=== PATIENT | male | born 1965 | race Caucasian/White ===

== ENCOUNTER 2022-04-13 09:36 | Inpatient (IN) | payer SELFPAY ==
[2022-04-13] VITALS (26 sets, daily range): BP systolic 91–146; BP diastolic 65–90; PULSE 41–60; RESP 10–23; O2SAT 92–98; BMI 26.4
--- NOTE | 2022-04-13 09:44 | ECG_ITS ---
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 Measurements Intervals [place] Rate: 50 P: 60 DC: 141 QRS: 40 QRSD: 131 T: 52 QT: 510 QTc: 467 Interpretive Statements SINUS BRADYCARDIA WITH SINUS ARRHYTHMIA INTRAVENTRICULAR CONDUCTION DELAY [130+ ms QRS DURATION] INFERIOR MYOCARDIAL INFARCTION , OF INDETERMINATE AGE [40+ ms Q WAVE AND/OR ST/T ABNORMALITY IN II/aVF] No previous ECG available for comparison Electronically Signed On 04-14-2022 13:54:07 SUBSTATION ENGINEER by Gregorio Frazier M.D. [id number]
--- NOTE | 2022-04-13 09:44 | XRR_ITS ---
PROCEDURE INFORMATION: Exam: XR Chest Exam date and time: 04/13/2022 10:51 AM Age: 56 years old Clinical indication: Pain; Chest pressure; Additional info: Chest pain TECHNIQUE: Imaging protocol: Radiologic exam of the chest. Views: 1 view. COMPARISON: No relevant prior studies available. FINDINGS: Lungs: There is mild peribronchial wall thickening. No pulmonary consolidation. Pleural spaces: No pleural effusion. No pneumothorax. Heart/Mediastinum: The cardiac silhouette is unremarkable. No gross evidence of pneumomediastinum. Bones/joints: No gross fracture. XR/XR chest 1V portable [id number] IMPRESSION: There is mild peribronchial wall thickening; query viral infection/bronchitis, chronic bronchitis and/or asthma.
--- NOTE | 2022-04-13 09:46 | ED_ITS ---
HPI - Chest Pain General: Chief Complaint: ER Hold Stated Complaint: CHEST PAIN Time Seen by Provider: 04/13/22 09:37 Source: patient Mode of arrival: ambulatory History of Present Illness: 56-year-old male presents emergency room with complaint of chest pain. He has a known history of coronary artery disease he had a couple episodes this week of chest pain while at rest that resolved spontaneously. This 1 seemed to be progressively worsening last night episodes while he was doing some woodcarving and resolved spontaneously and then resumed this morning while at rest. He was given Nitropaste in route he states he did not notice any improvement with it. He has previously had several stents unfortunately has not been taking any medications last couple years and including his Plavix. He thinks its been approximately 4 years since he has had any kind of cardiac evaluation he thought the last time he was evaluated they told him everything was normal he cannot member if they did any particular testing such as an echo stress test or angiogram. Initial arrival there is no ST elevation on his EKG. MD complaint: chest pain Onset (ago): hour(s) Timing of current episode: episodic Prior episodes: Yes Onset: during rest Pain location: left chest Severity: moderate Quality: aching and heaviness Relieving factors: nothing Exacerbating factors: nothing Associated symptoms: Deny abdominal pain, diaphoresis, dyspnea, fever(s), leg edema, nausea, palpitations, sense of impending doom, syncope or vomiting Review of Systems Const: Denies: fever(s), chills, fatigue or diaphoresis ENMT: Denies: throat pain, ear or mastoid pain, nasal discharge or nasal congestion Card: Reports: chest pain; Denies: palpitations, irregular heart rhythm, edema, swelling of feet/ankles or syncope Resp: Denies: dyspnea GI: Denies: abdominal pain, nausea or vomiting : Denies: flank pain, dysuria, urinary frequency or urinary urgency Skin/Breast: Denies: rash or pruritus PFSH ED PFSH: Medical History Coronary stent patent Myocardial infarct, old Social History Smoking and tobacco status: current every day smoker Quit status (tobacco): considering quitting Second hand smoke exposure: No Smoking risk assessment/counseling performed?: No Alcohol intake: never Desire information about alcohol rehabilitation?: No Counseling given: No Physical Exam Const: COMMON NORMALS: no acute distress GENERAL APPEARANCE: cooperative and comfortable ORIENTATION/CONSCIOUSNESS: Yes awake, Yes oriented to person, Yes oriented to place and Yes oriented to time HENMT: COMMON NORMALS: normocephalic, atraumatic and hearing grossly normal bilaterally HEAD & SCALP: normocephalic and atraumatic Resp: COMMON NORMALS: normal respiratory effort, No retractions, No use of accessory muscles and clear to auscultation bilaterally AUSCULTATION: clear to auscultation bilaterally Cardio: COMMON NORMALS: regular rate, regular rhythm and No murmurs present (Cardio) RATE: regular rate RHYTHM: regular rhythm GI: COMMON NORMALS: Soft to palpation and No hepatosplenomegaly present AUSCULTATION: Yes normoactive bowel sounds PALPATION: Yes Soft to palpation, No Tenderness to palpation present (GI), No Guarding due to palpation present (GI) and Yes No hepatosplenomegaly present Extremity: COMMON NORMALS: normal to inspection, capillary refill normal, no clubbing, cyanosis or edema, no calf tenderness and no pedal edema Neuro: SENSORIUM/ORIENTATION: Yes oriented to person, Yes oriented to place and Yes oriented to time Skin: COMMON NORMALS: no rashes or lesions noted GENERAL SKIN EXAM: no rashes or lesions noted Course Vital Signs: Vital signs: Vital Signs Pulse Rate 55 L 04/14/22 03:44 Respiratory Rate 18 04/14/22 03:44 Blood Pressure 125/65 04/14/22 03:44 Pulse Oximetry 96 04/14/22 03:44 Oxygen Delivery Me thod 04/14/22 03:44 MDM - Chest Pain Medical Decision Making Patient describes episode of escalating unstable angina over the past week worsening today. First troponin is elevated were waiting on a second to go ahead and load him with Plavix he is on Nitropaste discussed with hospitalist given his history and his current presentation will need to admit. He has not nonspecific ST changes nothing that would meet criteria for ST elevation ND at this point. Discussed with the patient he expressed understanding discussed with hospitalist orders are written. Medical Records I reviewed the patient's medical records. Lab Data I reviewed the patient's lab results. 04/14/22 01:45 04/14/22 01:45 Radiology Impressions Chest X-Ray 04/13/22 09:44 IMPRESSION: There is mild peribronchial wall thickening; query viral infection/bronchitis, chronic bronchitis and/or asthma. Discharge Plan Discharge Patient Disposition: Admitted As Inpatient Admit Provider: Mariel Saenz Clinical Impression: Unstable angina pectoris, Atherosclerotic heart disease of [place] coronary artery with unstable angina pectoris, Dyslipidemia, Ischemic cardiomyopathy, Smoking addiction, Benign essential hypertension with target blood pressure below 140/90 Condition: Stable Coding Level of Care Code ED Bullet Swaging Machine Operator for Chg Fwd Exam Detailed
[2022-04-13] MEDS: clopidogrel 300 mg Tablet 600 MG PO (09:48)
[2022-04-13 10:20] LABS: Basophils % 0.5 %; Eosinophils # 0.1 10^3/uL (0.0-0.8); Eosinophils % 1.4 %; Hematocrit 47.7 % (42.0-52.0); Hemoglobin 15.5 g/dL (11.7-16.6); Lymphocytes # 2.7 10^3/uL (0.8-4.8); Lymphocytes % 30.6 %; Mean Corpuscular HGB Conc 32.5 g/dL (30.0-36.0); Mean Corpuscular Hemoglobin 28.2 pg (28.0-34.0); Mean Corpuscular Volume 86.9 fl (80-94); Mean Platelet Volume 11.3 fL (7.4-10.4); Monocytes # 0.8 10^3/uL (0.2-0.9); Monocytes % 8.7 %; Neutrophils # 5.15 10^3/uL (1.8-7.7); Neutrophils % 58.5 %; Nucleated Red Blood Cells % 0 %; Platelet Count 253 10^3/cmm (130-400); Red Blood Count 5.49 10^6/uL (4.1-5.3); Red Cell Distribution Width 14.4 % (12.1-15.1); White Blood Count 8.8 10^3/uL (4.0-10.0)
[2022-04-13 10:29] LABS: Alanine Aminotransferase 28 U/L (0-41); Albumin Level 4.2 g/dL (3.5-5.2); Alkaline Phosphatase 139 U/L (40-130); Aspartate Amino Transferase 33 U/L (0-40); Blood Urea Nitrogen 14 mg/dL (6-20); Carbon Dioxide 27 mmol/L (22-29); Chloride 100 mmol/L (98-107); Creatinine Clr Calc Pharmacy 119.9068; Globulin 3.2 g/dL (1.3-4.6); Glomerular Filtration Rate 99.3 mL/min (90-130); Glucose 112 mg/dL (65-115); Osmolality Calculated 281 mOsm/kg (285-295); Sodium 135 mmol/L (136-145); Total Bilirubin 0.4 mg/dL (0.15-1.2); Total Protein 7.4 g/dL (6.6-8.7)
[2022-04-13 10:30] LABS: Troponin(5th) Baseline 79 ng/L (0-15)
[2022-04-13 10:42] LABS: Anion Gap 12.4 (5-19); Potassium 4.4 mmol/L (3.5-5.1)
--- NOTE | 2022-04-13 11:20 | ECG_ITS ---
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 Measurements Intervals [place] Rate: 42 P: 56 MT: 170 QRS: 50 QRSD: 136 T: 58 QT: 541 QTc: 456 Interpretive Statements SINUS BRADYCARDIA WITH SINUS ARRHYTHMIA INTRAVENTRICULAR CONDUCTION DELAY [130+ ms QRS DURATION] INFERIOR MYOCARDIAL INFARCTION , OF INDETERMINATE AGE [40+ ms Q WAVE AND/OR ST/T ABNORMALITY IN II/aVF] Compared to ECG 04/13/2022 09:42:15 No significant changes Electronically Signed On 04-15-2022 0:04:49 CHAR FILTER TANK TENDER by Gregorio Frazier M.D. [id number]
[2022-04-13 13:24] LABS: Troponin 5 2HR 158.8 ng/L (0-15); Troponin 5 2HR Delta 79.8 ABS# (0-10)
--- NOTE | 2022-04-13 13:30 | USCV_ITS ---
Marv Gonzalez Age: 56 Gender: M : 1965 Exam Date: 04/13/2022 13:53 Ordering Phys: Mariel Saenz MD Technologist: Jhony Navarro Exam Location: [facility] Indication: nstemi BP: 134 / 68 HR: 45 Rhythm: Sinus Technical Quality: Adequate MEASUREMENTS (Male / Female) Normal Values 2D ECHO LV Diastolic Diameter PLAX 5.7 cm 4.2 - 5.9 / 3.9 - 5.3 cm LV Systolic Diameter PLAX 4.3 cm IVS Diastolic Thickness 0.9 cm 0.6 - 1.0 / 0.6 - 0.9 cm IVS Systolic Thickness 1.3 cm LVPW Diastolic Thickness 1.3 cm 0.6 - 1.0 / 0.6 - 0.9 cm LVPW Systolic Thickness 1.3 cm LVOT Diameter 2.1 cm LV Ejection Fraction 2D Teich 30.5 % LV Ejection Fraction MOD 2C 58.1 % LV Ejection Fraction 2C AL 57.7 % LA Diameter 4.6 cm Aorta at Sinotubular Diameter 3.0 cm IVC Diameter 2.6 cm M-MODE Aortic Annulus Diameter 4.1 cm LA Ao Ratio MM 1.1 MV E Point Septal Separation 1.5 cm DOPPLER AV Peak Velocity 157.0 cm/s LVOT Peak Velocity 108.0 cm/s AV Area Cont Eq vti 2.7 cm squared AV Area Cont Eq pk 2.3 cm squared MV Area PHT 5.0 cm squared Mitral E to A Ratio 1.0 MV E' Velocity 33.0 cm/s Mitral E to MV E' Ratio 7.6 Mitral E to LV E' Lateral Ratio 6.1 Mitral E to LV E' Septal Ratio 10.4 TR Peak Velocity 130.0 cm/s TR Peak Gradient 6.8 mmHg TV Peak E Velocity 78.0 cm/s Right Atrial Pressure 3.0 mmHg Pulmonary Artery Systolic Pressu 9.8 mmHg RV Acceleration Time 0.1 s FINDINGS Left Ventricle Moderate diffuse hypokinesia left ventricle. Mildly dilated LV cavity.Grade I/IV diastolic dysfunction (abnormal relaxation filling pattern), normal to mildly elevated filling pressures. LV ejection fraction around 35 to 40%(visual) Right Ventricle The right ventricle is normal in size and function. Right Atrium The right atrium is normal in size. Left Atrium The left atrium is normal in size. Mitral Valve Thickened mitral valve. Aortic Valve Thickened aortic valve. Tricuspid Valve No gross abnormalities noted.trace tricuspid valve regurgitation. Pulmonic Valve Could not be visualized well Pericardium Normal pericardium without effusion. Aorta Normal ascending aorta dimension. IVC The inferior vena cava appears normal. CONCLUSIONS Moderate diffuse hypokinesia left ventricle. Mildly dilated LV cavity. Grade I/IV diastolic dysfunction (abnormal relaxation filling pattern), normal to mildly elevated filling pressures. LV ejection fraction around 35 to 40%(visual). Thickened aortic and mitral valves. Trace tricuspid valve regurgitation. Estimated pulmonary artery peak systolic pressure within normal There is no pericardial effusion. No similar previous studies are available for comparison Dr Gregorio Frazier MD [facility] (Electronically Signed) Final Date: 13 April 2022 15:09 S
--- NOTE | 2022-04-13 13:30 | PC.NURSE ---
report given to Cezar Sierra5
--- NOTE | 2022-04-13 13:33 | PM.HP ---
Providers/Chief Complaint Admitting Physician: Mariel Saenz MD Primary Care Provider: BRYANT Linares Chief Complaint: CHEST PAIN History of Present Illness Marv Gonzalez is a 56 year old male with a past medical history of CAD, history of stenting 16 years ago, and then again 4 to 5 years afterwards for what appears to be in-stent stenosis per his history. He had previous cardiac care in [place]. Patient presents to the emergency room today complaining of chest pain for the last 4 days. States that he was at home, working in his barn when the pain started. He initially thought this was heartburn, symptoms apparently relieved by belching. However symptoms returned over the next 3 days. Since last night his pain has become more persistent and therefore presented to the emergency room. He describes the sensation as a tightness squeezing sensation in the middle of his chest radiating into the back. Associated diaphoresis present. No dyspnea. Upon presentation to the ER he was noted to have sinus bradycardia with heart rate ranging between 45 to 60 bpm. No lower extremity edema. Denies any orthopnea or PND. EKG did not show any acute ST-T wave changes. Baseline troponin returned elevated at 79, trending up at 2 hours with a delta of 79. Symptoms are not significantly relieved after morphine or nitro patch. Review of Systems General: Reports: 10 or more systems reviewed and unremarkable except in HPI and below Const: Denies: fever(s), chills or body aches Eyes: Denies: change in vision, blurry vision or photophobia ENMT: Reports: hoarseness; Denies: throat pain, enlarged tonsils, odynophagia or nasal congestion Card: Denies: chest pain, palpitations, irregular heart rhythm, edema, swelling of feet/ankles, lightheadedness, pre-syncope, dyspnea on exertion or orthopnea Resp: Denies: dyspnea, productive cough, non-productive cough, wheezing, stridor, pain on inspiration, change in phlegm color, hemoptysis or chest congestion GI: Denies: abdominal pain, nausea, vomiting, hematemesis, coffee ground emesis, dysphagia, heartburn, diarrhea, constipation, GI cramping, change in stool character, hematochezia or melena : Denies: flank pain, dysuria, urinary frequency, urinary urgency, urinary hesitancy or hematuria Musc: Denies: neck pain, back pain, extremity pain, joint swelling, joint warmth or deformity Neuro: Denies: headache(s), numbness in extremities, weakness in extremities, sensory changes, difficulty walking, frequent falls, dizziness, vertigo, behavioral changes, Slurred speech present or seizure-like activity Psych: Denies: anxiety, depression, suicidal ideation or homicidal ideation Endo: Denies: polyuria, polydipsia, tired all the time, cold intolerance or hot flashes Getachew/Lymph: Denies: easy bruising or easy bleeding Medications/Allergies Home Medications Medication Instructions Recorded Confirmed Last Taken Type No Known Home Medications 11/30/19 04/13/22 Unknown History Allergies Allergy/AdvReac Type Severity Reaction Status Date / Time No Known Allergies Allergy Verified 11/30/19 08:44 PFSH Acute PFSH: Medical History Coronary stent patent Myocardial infarct, old Social History Smoking and tobacco status: current every day smoker Quit status (tobacco): considering quitting Second hand smoke exposure: No Smoking risk assessment/counseling performed?: No Alcohol intake: never Desire information about alcohol rehabilitation?: No Counseling given: No Vitals/I&O/Wt Last Vital Signs Pulse 41 L 04/13/22 12:00 Resp 11 L 04/13/22 12:00 BP 120/78 04/13/22 12:00 Pulse Ox 97 04/13/22 12:00 O2 Del Method 04/13/22 12:00 Weight last 48 hrs Weight 90.718 kg Physical Exam Narrative: General: No acute distress, AO x3 HEENT: PERRLA, pupils bilaterally equal and reactive, pallors not present Chest: Normal vesicular breath sounds, no added sounds, equal good air entry bilaterally CVS: S1-S2 regular, no murmurs, no tachycardia, no gallops, no rubs Abdomen: Soft, nontender, no organomegaly, bowel sounds present Neuro: No focal deficits, no facial deformity, AO x3, power 5/5 in all limbs Data 04/13/22 Unknown 04/13/22 Unknown A&P Assessment and plan (1) NSTEMI (non-ST elevated myocardial infarction): Patient presenting today with central chest pressure radiating into the back along with associated diaphoresis. Has a known past history of coronary artery disease. EKG without acute ST-T wave changes, however elevated baseline troponin trending up at 2 hours with a delta of 79. Overall clinically appears to be consistent with NSTEMI. Start Lovenox 1 mg/kg subcutaneous every 12 hours. He has received aspirin 325 mg and Plavix 600 mg already. Continue aspirin 81 mg p.o. daily, lipitor 40mg daily Check echocardiogram. Cardiology consultation to assess for coronary angiogram Currently on nitro patch, states that he has had some improvement, if persisting will start nitroglycerin infusion. Admitted to [facility]SU. Attestations Medical Necessity Statement*: Inpatient admission, anticipate greater than 2 midnight stay for NSTEMI, possible angiogram Coding Level of Care Code Acute Automatic Teller Machine Servicer for Cris Taylor Diagnoses NSTEMI (non-ST elevated myocardial infarction) I21.4
[2022-04-13] MEDS: enoxaparin 100 mg/mL Syringe 90 MG SUBCUT (14:04)
--- NOTE | 2022-04-13 15:44 | ECG_ITS ---
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 Measurements Intervals [place] Rate: 48 P: 61 ID: [id number] QRS: 52 QRSD: 127 T: 48 QT: 483 QTc: 432 Interpretive Statements SINUS BRADYCARDIA POSSIBLE RIGHT VENTRICULAR CONDUCTION DELAY [RSR (QR) IN V1/V2] INFERIOR MYOCARDIAL INFARCTION , OF INDETERMINATE AGE [40+ ms Q WAVE AND/OR ST/T ABNORMALITY IN II/aVF] Compared to ECG 04/13/2022 11:20:37 Sinus arrhythmia no longer present Intraventricular conduction delay no longer present Myocardial infarct finding still present Electronically Signed On 04-15-2022 0:08:03 AIRCRAFT RIGGING AND CONTROLS MECHANIC by Gregorio Frazier M.D. [email or web address] [id number]
[2022-04-13] MEDS: aspirin 81 mg Chew Tablet 324 MG PO (17:55)
[2022-04-13] MEDS: nitroglycerin 1 gm/inch oint Pkt 1 INCH TOPICAL (18:00)
--- NOTE | 2022-04-13 18:26 | P.CONIM_ITS ---
Providers/Reason For Consult Consulting Physician/Specialty*: JJ Frazier MD/cardiology Reason for Consult*: Patient with chest pain and elevated troponin T Requesting Physician: Dr. Saenz Attending Physician: Mariel Saenz MD Primary Care Provider: BRYANT Linares History of Present Illness History of Present Illness Marv Gonzalez is a 56 year old male with a history of coronary artery disease and myocardial infarction, presenting with complaints of prolonged episode of chest pain since 9:00 last night. He was found to have elevated troponin T with significant delta. Cardiology consult is requested for further cardiac evaluation recommendation. This patient has a history of coronary disease and had myocardial infarction at the age of 40. At that time, he had a cardiac catheterization followed by PCI at the [facility]. Details are not available. 3 or 4 years after the initial intervention, he was readmitted to the hospital and had to undergo repeat angiogram and PCI. He was told that the previous stent got occluded/collapsed?. Apparently since then, he has been doing okay with no recu rrence of chest pain. He has been taking medications up until 6 or 7 years ago. He used to see Dr. Martin at the [facility]. But he has not seen him for the last 6 or 7 years. He continues to smoke. He has a history of hypertension and dyslipidemia. No history for severe peripheral artery disease. No history for kidney disease, liver disease or bleeding disorders. He has been having episodes of chest pain for the last 10 days. He might have 3 or 4 episodes of pain. He described as a burning gas-like pain in the mid substernal region, radiating across the chest and sometimes to the back. The symptoms may last for few minutes and then goes away by itself or with belching. Last night he started having symptoms around 9 PM while he was working in his shed, doing some woodcarving. Started having similar symptoms in the substernal region, radiating to both shoulders and to the back and then down to both arms. This time the symptoms start getting worse. He came home with the symptoms. Apparently he had the symptoms throughout the night. This morning the pain was still there and was getting more severe. For that reason, he went to the ambulance at and from there he was brought to the emergency room. At the time of examination, patient is almost pain-free. He still may have some tired feeling in the chest. He has no associated symptoms or radiation of pain. No previous history for any diabetes or CVA. No history for peripheral artery disease. Both his parents had myocardial infarction in their 50s and 60s. One of his brothers also is known to have heart problems starting in his 40s. No other relevant family history. Review of Systems Narrative: CONSTITUTIONAL: No fever or chills. Has been having some amount of fatigue. EYES: No blurring of vision or other visual disturbances lately. ENT: No hoarseness of voice, auditory disturbances or sore throat. CARDIOVASCULAR: As mentioned above. RESPIRATORY: No significant cough. GASTROINTESTINAL: No hematemesis or melena. GENITOURINARY: No dysuria or hematuria. INTEGUMENTARY: No skin rashes or history of skin cancer. NEURO: No transient ischemic attacks or amaurosis. PSYCHIATRIC: No history of psychosis or major depression. HEMATOLOGIC: No bleeding disorders or significant anemia. ENDOCRINE: No history of polyuria or polydipsia. MUSCULOSKELETAL: No recent joint pain or swelling. ALLERGY/IMMUNOLOGY: As mentioned above. Medications/Allergies Home Medications Medication Instructions Recorded Confirmed Last Taken Type No Known Home Medications 11/30/19 04/13/22 Unknown History Allergies Allergy/AdvReac Type Severity Reaction Status Date / Time No Known Allergies Allergy Verified 11/30/19 08:44 Current Medications Generic Name Dose Route Start Last Admin Trade Name Freq PRN Reason Stop Dose Admin Enoxaparin Sodium 90 mg 04/13/22 14:00 04/13/22 14:04 Enoxaparin 100 Mg/Ml Syringe SUBCUT 90 mg Q12H NAYAN Administration Nitroglycerin 1 inch 04/13/22 17:00 04/13/22 18:00 Nitroglycerin 1 Gm/Inch Oint Pkt TOPICAL 1 inch Q6H NAYAN Administration PFSH Acute PFSH: Medical History Coronary stent patent Myocardial infarct, old Social History Smoking and tobacco status: current every day smoker Quit status (tobacco): considering quitting Second hand smoke exposure: No Smoking risk assessment/counseling performed?: No Alcohol intake: never Desire information about alcohol rehabilitation?: No Counseling given: No Vitals/I&O/Wt Last Vital Signs Pulse 60 04/13/22 17:45 Resp 15 04/13/22 17:45 BP 133/79 04/13/22 17:45 Pulse Ox 94 04/13/22 17:45 O2 Del Method 04/13/22 14:12 Weight last 48 hrs Weight 200 lb Physical Exam Narrative: GENERAL: The patient is alert and oriented times three. Not in any acute distress. HEENT: No significant pallor, icterus or lymphadenopathy.Oral cavity: There are no mucous membrane lesions. NECK: Trachea appears to be central. No masses noted. No JVD or thyromegaly appreciated. RESPIRATORY: Chest is symmetrical. No intercostals muscle retraction or any accessory muscle activation. There is no chest wall tenderness. Breath sounds are heard bilaterally. No rales or rhonchi heard. No evidence of any consolidation. BREASTS: Deferred. HEART: The heart sounds are normal. No S3 or S4. No significant murmurs. No pericardial rub ABDOMEN: No vessel pulsations or distention. No tenderness. No organomegaly appreciated. Bowel sounds are normally heard. : Deferred. RECTAL: Deferred. LYMPHATIC: No lymphadenopathy noted in the neck. EXTREMITIES: No edema or cyanosis. No clubbing. MUSCULOSKELETAL: No acute joint deformities or swelling SKIN: There are no significant rashes or ecchymosis NEUROPSYCHIATRIC: The patient is alert and oriented x3. Appears to be in a good mood. No tremors or rigidity noted. Data 04/13/22 Unknown 04/13/22 Unknown Micro: Laboratory Last Values WBC 8.8 10^3/uL (4.0-10.0) 04/13/22 Unknown RBC 5.49 10^6/uL (4.1-5.3) H 04/13/22 Unknown Hgb 15.5 g/dL (11.7-16.6) 04/13/22 Unknown Hct 47.7 % (42.0-52.0) 04/13/22 Unknown MCV 86.9 fl (80-94) 04/13/22 Unknown MCH 28.2 pg (28.0-34.0) 04/13/22 Unknown MCHC 32.5 g/dL (30.0-36.0) 04/13/22 Unknown RDW 14.4 % (12.1-15.1) 04/13/22 Unknown Plt Count 253 10^3/cmm (130-400) 04/13/22 Unknown MPV 11.3 fL (7.4-10.4) H 04/13/22 Unknown Neut % (Auto) 58.5 % 04/13/22 Unknown Lymph % (Auto) 30.6 % 04/13/22 Unknown [place]ward % (Auto) 8.7 % 04/13/22 Unknown Eos % (Auto) 1.4 % 04/13/22 Unknown Baso % (Auto) 0.5 % 04/13/22 Unknown Neut # (Auto) 5.15 10^3/uL (1.8-7.7) 04/13/22 Unknown Lymph # (Auto) 2.7 10^3/uL (0.8-4.8) 04/13/22 Unknown [place]ward # (Auto) 0.8 10^3/uL (0.2-0.9) 04/13/22 Unknown Eos # (Auto) 0.1 10^3/uL (0.0-0.8) 04/13/22 Unknown Baso # (Auto) 0.0 10^3/uL (0.0-0.1) 04/13/22 Unknown Nucleated RBC % (auto) 0 % 04/13/22 Unknown Nucleated RBCs # 0.0 /100WBC 04/13/22 Unknown Sodium 135 mmol/L (136-145) L 04/13/22 Unknown Potassium 4.4 mmol/L (3.5-5.1) 04/13/22 Unknown Chloride 100 mmol/L (98-107) 04/13/22 Unknown Carbon Dioxide 27 mmol/L (22-29) 04/13/22 Unknown Anion Gap 12.4 (5-19) 04/13/22 Unknown BUN 14 mg/dL (6-20) 04/13/22 Unknown Creatinine 0.8 mg/dL (0.7-1.2) 04/13/22 Unknown GFR Calculation 99.3 mL/min (90-130) 04/13/22 Unknown Glucose 112 mg/dL (65-115) 04/13/22 Unknown Calculated Osmolality 281 mOsm/kg (285-295) L 04/13/22 Unknown Calcium 10.0 mg/dL (8.5-10.5) 04/13/22 Unknown Total Bilirubin 0.4 mg/dL (0.15-1.2) 04/13/22 Unknown AST 33 U/L (0-40) 04/13/22 Unknown ALT 28 U/L (0-41) 04/13/22 Unknown Alkaline Phosphatase 139 U/L (40-130) H 04/13/22 Unknown Troponin T Baseline 79 ng/L (0-15) H 04/13/22 Unknown Troponin T 120 Minute 158.8 ng/L (0-15) H 04/13/22 12:06 Delta Troponin T 79.8 ABS# (0-10) H* 04/13/22 12:06 Troponin T Hi Sens 6Hr 304.0 ng/L (0-15) H 04/13/22 15:58 Troponin T Hi Sens 6Hr Delta 225.0 ng/L (0-12) H* 04/13/22 15:58 Total Protein 7.4 g/dL (6.6-8.7) 04/13/22 Unknown Albumin 4.2 g/dL (3.5-5.2) 04/13/22 Unknown Globulin 3.2 g/dL (1.3-4.6) 04/13/22 Unknown Echo: My impression: ?CONCLUSIONS ?Moderate diffuse hypokinesia left ventricle.? ?Mildly dilated LV cavity. ?Grade I/IV diastolic dysfunction (abnormal relaxation filling ?pattern), normal to mildly elevated filling pressures. ? LV ejection fraction around 35 to 40%(visual). ?Thickened aortic and mitral valves. ?Trace tricuspid valve regurgitation. ?Estimated pulmonary artery peak systolic pressure within normal ?There is no pericardial effusion. ?No similar previous studies are available for comparison EKG 1: My Interpretation: Sinus bradycardia the rate of 48 bpm. Incomplete right bundle branch block. Nonspecific ST changes. EKG computer-generated impression: Chest X-Ray 04/13/22 09:44 IMPRESSION: There is mild peribronchial wall thickening; query viral infection/bronchitis, chronic bronchitis and/or asthma. A&P Assessment and plan (1) Atherosclerotic heart disease of [place] coronary artery with unstable angina pectoris: Patient is symptoms are consistent with unstable angina complicated with non-ST elevation myocardial infarction. His initial troponin I was elevated with a significant delta at 2 hours and 6 hours, 158 and 225 respectively. Currently he is almost pain-free. He was given 2 subcu Lovenox, p.o. Plavix and aspirin. He also restarted on high-dose of Lipitor. We will closely monitored on telemetry. (2) Benign essential hypertension with target blood pressure below 140/90: Patient is currently normotensive. We will start him on a low-dose of JAIRO inhibitor. Also start him on metoprolol, if the heart rate is acceptable. (3) Dyslipidemia: Statin as mentioned above. (4) Ischemic cardiomyopathy: Will be closely monitoring for development of any heart failure. Currently seems to be stable with no evidence of decompensation. (5) Smoking addiction: Patient quit smoking 2 days ago. Plan Patient may require a nearly cardiac catheterization to further evaluate his coronary status and decide on further management. We also try to get the medical records from [facility]. Based on his clinical progress and the results of the above, further recommendations will be made. Thank you for the opportunity to eval this patient and make these recommendations Coding Level of Care Code Acute Ticketer for Cris Taylor History Detailed Exam Detailed Diagnoses Atherosclerotic heart disease of [place] coronary artery with unstable angina pectoris I25.110 Benign essential hypertension with target blood pressure below 140/90 I10 Dyslipidemia E78.5 Ischemic cardiomyopathy I25.5 Smoking addiction F17.200
--- NOTE | 2022-04-13 19:54 | PC.NURSE ---
Pt. complaining of pain at his I.V. site and states You can remove this or I will. The doctor said I could have it removed because they will not need it tonight, and they may need it tomorrow. Pt. states that if they need it tomorrow then he will allow it to be put back in. I.V. removed and site bandaged. I.V. site appears to be infiltrated and causing pain.
--- NOTE | 2022-04-13 20:34 | PC.NURSE ---
Spouse called to check on . I have explained that he is not happy about having to stay in the hospital, but i am doing everything in my power to make him comfortable while he is here and hopefully detour him from leaving against medical advice. Spouse states If he does, it will be a long walk home!
--- NOTE | 2022-04-13 21:11 | PC.NURSE ---
Spoke with hospitalist about patient refusing I.V. until needed and that I will hold the Nitro paste until he has an I.V. in place again. The physician agrees and states that we will revisit the patients need for the I.V. if the patient begins having pain again.
--- NOTE | 2022-04-13 21:20 | PC.NURSE ---
Pt. is now resting in the bed with no complaints and has been apologizing to staff for his behavior earlier. We have explained that he has no need to be apologetic.
[2022-04-13] MEDS: atorvastatin 40 mg Tablet PO (21:25)
[2022-04-14 01:54] LABS: Basophils % 0.1 %; Eosinophils # 0.1 10^3/uL (0.0-0.8); Hematocrit 45.3 % (42.0-52.0); Hemoglobin 14.4 g/dL (11.7-16.6); Lymphocytes # 2.4 10^3/uL (0.8-4.8); Lymphocytes % 29.4 %; Mean Corpuscular HGB Conc 31.8 g/dL (30.0-36.0); Mean Corpuscular Hemoglobin 28.2 pg (28.0-34.0); Mean Corpuscular Volume 88.6 fl (80-94); Monocytes # 0.8 10^3/uL (0.2-0.9); Monocytes % 10.1 %; Neutrophils # 4.87 10^3/uL (1.8-7.7); Neutrophils % 59.3 %; Nucleated Red Blood Cells % 0 %; Platelet Count 215 10^3/cmm (130-400); Red Blood Count 5.11 10^6/uL (4.1-5.3); Red Cell Distribution Width 14.4 % (12.1-15.1); White Blood Count 8.2 10^3/uL (4.0-10.0)
[2022-04-14 02:11] LABS: Magnesium 2.2 mg/dL (1.7-2.3)
[2022-04-14 02:12] LABS: Alanine Aminotransferase 34 U/L (0-41); Albumin Level 3.7 g/dL (3.5-5.2); Alkaline Phosphatase 131 U/L (40-130); Anion Gap 14.2 (5-19); Aspartate Amino Transferase 98 U/L (0-40); Blood Urea Nitrogen 16 mg/dL (6-20); Calcium 9.6 mg/dL (8.5-10.5); Carbon Dioxide 23 mmol/L (22-29); Chloride 104 mmol/L (98-107); Creatinine Clr Calc Pharmacy 119.9068; Glomerular Filtration Rate 99.3 mL/min (90-130); Glucose 116 mg/dL (65-115); Osmolality Calculated 286 mOsm/kg (285-295); Potassium 4.2 mmol/L (3.5-5.1); Sodium 137 mmol/L (136-145); Total Bilirubin 0.4 mg/dL (0.15-1.2); Total Protein 6.7 g/dL (6.6-8.7)
[2022-04-14] MEDS: enoxaparin 100 mg/mL Syringe 90 MG SUBCUT (02:58)
[2022-04-14 03:44] VITALS: BP 125/65; PULSE 55; RESP 18; O2SAT 96
--- NOTE | 2022-04-14 08:01 | P.DS_ITS ---
Discharge Providers Date of Admission: 04/13/22 11:20 Date of Discharge: April 14, 2022 Attending Provider at Admission: Mariel Saenz MD Attending Provider at Discharge: Mariel Saenz MD Primary Care Provider: BRYANT Linares Diagnoses at Discharge Discharge Diagnosis (1) Atherosclerotic heart disease of [place] coronary artery with unstable angina pectoris: Status: Acute (2) Benign essential hypertension with target blood pressure below 140/90: Status: Acute (3) Dyslipidemia: Status: Acute (4) Ischemic cardiomyopathy: Status: Acute (5) Smoking addiction: Status: Acute Reason for Visit Reason for Visit: CHEST PAIN Hospital Course Hospital Course For details please see my H&P for from yesterday. Briefly this is a 56-year-old male who was admitted on April 13, 2022 after presenting with 4 days of chest pain. His clinical picture and labs were consistent with an NSTEMI. Patient was planned to go to [facility] today at 430, however he was insistent that he wanted to leave the hospital. Initially he stated that he wants to leave and get some fresh air. I arranged for him to go outside with with hospital staff, however he became very angry at the thought of going out with someone and told he was did not want to be babysat . Instead he signed out AMA. He was counseled that given an ongoing NSTEMI this could be potentially fatal for him. He said he did not care and that he has had enough. Physical Exam Narrative: General: No acute distress, AO x 3 HEENT: PERRLA, pupils bilaterally equal and reactive, pallors not present Signed out AMA, did not permit rest of the exam, walked out independently in no acute distress. Discharge Data Studies Completed and Pending Completed Studies During Hospitalization Category Date Time Status XR chest 1V portable [id number] Stat Exams 04/13/22 09:44 Completed CV. echo complete* [id number] Routine Ultrasound 04/13/22 13:30 Completed Radiology Impressions Chest X-Ray 04/13/22 09:44 IMPRESSION: There is mild peribronchial wall thickening; query viral infection/bronchitis, chronic bronchitis and/or asthma. Laboratory Results WBC 8.2 10^3/uL (4.0-10.0) 04/14/22 01:45 RBC 5.11 10^6/uL (4.1-5.3) 04/14/22 01:45 Hgb 14.4 g/dL (11.7-16.6) 04/14/22 01:45 Hct 45.3 % (42.0-52.0) 04/14/22 01:45 MCV 88.6 fl (80-94) 04/14/22 01:45 MCH 28.2 pg (28.0-34.0) 04/14/22 01:45 MCHC 31.8 g/dL (30.0-36.0) 04/14/22 01:45 RDW 14.4 % (12.1-15.1) 04/14/22 01:45 Plt Count 215 10^3/cmm (130-400) 04/14/22 01:45 MPV 11.0 fL (7.4-10.4) H 04/14/22 01:45 Neut % (Auto) 59.3 % 04/14/22 01:45 Lymph % (Auto) 29.4 % 04/14/22 01:45 [place]ardo % (Auto) 10.1 % 04/14/22 01:45 Eos % (Auto) 1.0 % 04/14/22 01:45 Baso % (Auto) 0.1 % 04/14/22 01:45 Neut # (Auto) 4.87 10^3/uL (1.8-7.7) 04/14/22 01:45 Lymph # (Auto) 2.4 10^3/uL (0.8-4.8) 04/14/22 01:45 [place] # (Auto) 0.8 10^3/uL (0.2-0.9) 04/14/22 01:45 Eos # (Auto) 0.1 10^3/uL (0.0-0.8) 04/14/22 01:45 Baso # (Auto) 0.0 10^3/uL (0.0-0.1) 04/14/22 01:45 Nucleated RBC % (auto) 0 % 04/14/22 01:45 Nucleated RBCs # 0.0 /100WBC 04/14/22 01:45 Sodium 137 mmol/L (136-145) 04/14/22 01:45 Potassium 4.2 mmol/L (3.5-5.1) 04/14/22 01:45 Chloride 104 mmol/L (98-107) 04/14/22 01:45 Carbon Dioxide 23 mmol/L (22-29) 04/14/22 01:45 Anion Gap 14.2 (5-19) 04/14/22 01:45 BUN 16 mg/dL (6-20) 04/14/22 01:45 Creatinine 0.8 mg/dL (0.7-1.2) 04/14/22 01:45 GFR Calculation 99.3 mL/min (90-130) 04/14/22 01:45 Glucose 116 mg/dL (65-115) H 04/14/22 01:45 Calculated Osmolality 286 mOsm/kg (285-295) 04/14/22 01:45 Calcium 9.6 mg/dL (8.5-10.5) 04/14/22 01:45 Magnesium 2.2 mg/dL (1.7-2.3) 04/14/22 01:45 Total Bilirubin 0.4 mg/dL (0.15-1.2) 04/14/22 01:45 AST 98 U/L (0-40) H 04/14/22 01:45 ALT 34 U/L (0-41) 04/14/22 01:45 Alkaline Phosphatase 131 U/L (40-130) H 04/14/22 01:45 Troponin T Baseline 79 ng/L (0-15) H 04/13/22 Unknown Troponin T 120 Minute 158.8 ng/L (0-15) H 04/13/22 12:06 Delta Troponin T 79.8 ABS# (0-10) H* 04/13/22 12:06 Troponin T Hi Sens 6Hr 304.0 ng/L (0-15) H 04/13/22 15:58 Troponin T Hi Sens 6Hr Delta 225.0 ng/L (0-12) H* 04/13/22 15:58 Total Protein 6.7 g/dL (6.6-8.7) 04/14/22 01:45 Albumin 3.7 g/dL (3.5-5.2) 04/14/22 01:45 Globulin 3.0 g/dL (1.3-4.6) 04/14/22 01:45 Vitals Last Vital Signs Pulse 55 L 04/14/22 03:44 Resp 18 04/14/22 03:44 BP 125/65 04/14/22 03:44 Pulse Ox 96 04/14/22 03:44 O2 Del Method 04/14/22 03:44 Discharge Plan Discharge Condition: Stable Prescriptions: No Action No Known Home Medications Discharge Attestations Time Spent in Discharge Care*: less than 30 min Quality Metrics Clinical Quality Measures [ Acute Myocardial Infaction { Clinical Trial Participant: No; Contraindication to aspirin: None; Aspirin prescribed; Contraindication to statin: None; Statin prescribed; Contraindication to PCI: Other;}] Coding Level of Care Code Acute Chg FW [place] note Diagnoses Atherosclerotic heart disease of [place] coronary artery with unstable angina pectoris I25.110 Benign essential hypertension with target blood pressure below 140/90 I10 Dyslipidemia E78.5 Ischemic cardiomyopathy I25.5 Smoking addiction F17.200
--- NOTE | 2022-04-14 08:01 | PC.NURSE ---
Pt aggitated and requesting to go outside to cool off. Pt advised of the risks of going outside without monitoring. Pt insisted to go outside. Security arranged for pt to go outside and sit with security. Pt stated I'm not doing that. I don't need a [employer] to go outside. Pt advised that leaving the hospital is going against medical advice. Pt agreed to sign AMA paperwork. AMA paperwork signed.
== END 2022-04-14 08:02 | disposition left against medical advice (07) | DRG 282 ==
LOC: ER 11:19 → ER IP 11:55
PROVIDERS: Admitting Provider Student in an Organized Health Care Education/Training Program; Emergency Provider Family Medicine; PCP Nurse Practitioner; Visit Provider Student in an Organized Health Care Education/Training Program
DX: I21.4 Non-ST elevation (NSTEMI) myocardial infarction (principal); I25.110 Atherosclerotic heart disease of native coronary artery with unstable angina pectoris; I25.2 Old myocardial infarction; F17.200 Nicotine dependence, unspecified, uncomplicated; I25.5 Ischemic cardiomyopathy; I10 Essential (primary) hypertension; E78.5 Hyperlipidemia, unspecified; Z53.29 Procedure and treatment not carried out because of patient's decision for other reasons
CPT/HCPCS: 36415; 71045; 80053; 83735; 84484; 85025; 93005; 93306; 96372; 99285; J1650

== ENCOUNTER → 2023-01-14 09:20 | Outpatient (BNVA) | payer MEDICAID, SELFPAY | PROVIDERS: PCP Family Medicine; Visit Provider Nurse Practitioner Family | DX: M25.572 Pain in left ankle and joints of left foot (principal); W19.XXXA Unspecified fall, initial encounter | CPT/HCPCS: 73610; 73630 ==

== ENCOUNTER → 2023-11-16 08:08 | Outpatient (BNVA) | payer MEDICAID, SELFPAY | PROVIDERS: PCP Family Medicine; Visit Provider Nurse Practitioner Family | DX: I25.5 Ischemic cardiomyopathy (principal); E78.5 Hyperlipidemia, unspecified; E55.9 Vitamin D deficiency, unspecified; Z13.6 Encounter for screening for cardiovascular disorders; Z12.5 Encounter for screening for malignant neoplasm of prostate; I25.10 Atherosclerotic heart disease of native coronary artery without angina pectoris; I10 Essential (primary) hypertension; Z79.899 Other long term (current) drug therapy | CPT/HCPCS: 80053; 80061; 81003; 82306; 83036; 84443; 85025; G0103 ==

== ENCOUNTER → 2024-10-12 13:39 | Outpatient (BNVA) | payer MEDICAID, SELFPAY | PROVIDERS: PCP Nurse Practitioner Family; Visit Provider Nurse Practitioner Family | DX: I10 Essential (primary) hypertension (principal); E78.5 Hyperlipidemia, unspecified; E55.9 Vitamin D deficiency, unspecified; Z12.5 Encounter for screening for malignant neoplasm of prostate; R79.89 Other specified abnormal findings of blood chemistry; Z79.899 Other long term (current) drug therapy; Z13.6 Encounter for screening for cardiovascular disorders | CPT/HCPCS: 80053; 80061; 81003; 82306; 83036; 84439; 84443; 85025; 86376 ==